=== PATIENT | female | born 1950 | race Caucasian/White ===

== ENCOUNTER 2017-04-16 04:44 | Inpatient (IN) | payer MEDICARE, OTHER ==
[~2017-04-16] VITALS: Ht 157.5 cm; Wt 101.6 kg
[2017-04-16 04:55] LABS: PCO2 Arterial 36.1 mmHg (35-45); PO2 Arterial 57.1 mmHg (80-100); pH Blood Arterial 7.38 (7.35-7.45)
[2017-04-16 05:14] LABS: BASOPHILS ABSOLUTE AUTO 0.04 K/mm3 (0.00-0.23); BASOPHILS PERCENT AUTO 0 % (0-2); EOSINOPHILS PERCENT AUTO 0 % (0-6); Hematocrit 39.4 % (33.0-51.0); Hemoglobin 12.8 g/dL (11.5-16.0); IMMATURE GRAN ABSOLUTE AUTO 0.16 K/mm3 (0.00-0.10); IMMATURE GRAN PERCENT AUTO 1 % (0-1); LYMPHOCYTES ABSOLUTE AUTO 1.26 K/mm3 (0.84-5.20); LYMPHOCYTES PERCENT AUTO 7 % (21-46); MONOCYTES ABSOLUTE AUTO 0.39 K/mm3 (0.16-1.47); MONOCYTES PERCENT AUTO 2 % (4-13); Mean Corpuscular HGB 28.6 pg (26.0-34.0); Mean Corpuscular HGB Conc 32.5 g/dL (31.5-36.5); Mean Corpuscular Volume 88 fL (80-100); Mean Platelet Volume 11.2 fL (9.1-12.4); NEUTROPHILS ABSOLUTE AUTO 15.54 K/mm3 (1.96-9.15); NEUTROPHILS PERCENT AUTO 90 % (41-73); Platelet Count 175 K/mm3 (150-400); RDW Coefficient Variation 14.2 % (11.7-14.2); RDW Standard Deviation 45.7 fL (35.1-46.3); Red Blood Cell Count 4.48 M/mm3 (3.80-5.20); White Blood Cell Count 17.39 K/mm3 (4.00-11.30)
[2017-04-16 05:35] LABS: Calcium, Ionized (POC) 1.12 mmol/L (1.10-1.46); Chloride (POC) 96 mmol/L (98-108); Creatinine (POC) 1.3 mg/dL (0.6-1.0); Glucose (ISTAT POC) 290 mg/dL (70-99); Hemoglobin (POC) 13.3 g/dL (12.0-16.0); Potassium (POC) 3.4 mmol/L (3.5-5.5); Sodium (POC) 133 mmol/L (135-148); Total CO2 (POC) 22 mmol/L (21-32)
[2017-04-16 06:00] LABS: Albumin/Globulin Ratio 0.8 (0.8-1.8); Bilirubin, Total 0.5 mg/dL (0.1-1.0); Bun/Creatinine Ratio 14.3 (12.0-20.0); Calcium, Blood 8.7 mg/dL (8.5-10.1); Creatinine, Blood 1.12 mg/dL (0.40-1.00); Globulin, Blood 3.8 g/dL (2.2-4.0); Potassium, Blood 3.5 mmol/L (3.5-5.5); Total Protein, Blood 6.8 g/dL (6.4-8.2)
[2017-04-16 06:33] LABS: Troponin I 7.35 ng/mL (0.000-0.040)
[2017-04-16 06:48] LABS: International Normalized Ratio 1.11; Prothrombin Time Results 11.6 Sec (9.7-11.5)
[2017-04-16 07:05] LABS: Source, Urine Clean Catch
[2017-04-16 07:10] LABS: Bilirubin, Urine Neg (Neg); Blood, Urine 4+ (Neg); Glucose Qualitative, Urine 2+ (Neg); Ketones, Urine 1+ (Neg); Leukocyte Esterase, Urine 1+ (Neg); Nitrite, Urine Neg (Neg); Protein, Urine 3+ (Neg); Specific Gravity, Urine 1.015 (1.003-1.022); Urobilinogen, Urine NORM (Normal); pH, Urine 6.5 (5.0-8.0)
[2017-04-16 07:20] LABS: Appearance, Urine Hazy (Clear); Color, Urine Yellow (P-Yellow)
[2017-04-16 07:25] LABS: Squamous Epithelial Cells Mod /hpf (Few)
[2017-04-16 07:26] LABS: Influenza A Negative (NEGATIVE); Influenza B Negative (NEGATIVE)
[2017-04-16 07:27] LABS: Bacteria Mod /hpf
[2017-04-16 07:29] LABS: Granular Casts Rare /lpf (0)
[2017-04-16 08:01] LABS: Magnesium, Blood 1.9 mg/dL (1.6-2.4); Phosphorus, Blood 2.8 mg/dL (2.5-4.9)
[2017-04-16] MEDS ORDERED: LEVSOD50 PO (13:21)
[2017-04-16] MEDS ORDERED: METO25ER PO (13:22)
[2017-04-16 15:04] LABS: Troponin I 20.6 ng/mL (0.000-0.040)
[2017-04-16] MEDS ORDERED: ATOR80 PO (15:45)
[2017-04-16] MEDS ORDERED: FURO40 PO (15:45)
[2017-04-16] MEDS ORDERED: ACET325 PO (15:46)
[2017-04-16] MEDS ORDERED: DIPH50 PO (15:47)
[2017-04-16] MEDS ORDERED: Colace100 MG PO (15:48)
[2017-04-16 16:57] LABS: Creatine Kinase MB 21.4 ng/mL (0.0-3.6); Creatine Kinase MB Index 5.2 (0.0-4.0)
[2017-04-16 22:50] LABS: Troponin I 15.2 ng/mL (0.000-0.040)
[2017-04-16 23:09] LABS: Creatine Kinase MB 15.6 ng/mL (0.0-3.6); Creatine Kinase MB Index 3.3 (0.0-4.0)
[2017-04-17 04:22] LABS: BASOPHILS ABSOLUTE AUTO 0.03 K/mm3 (0.00-0.23); BASOPHILS PERCENT AUTO 0 % (0-2); EOSINOPHILS ABSOLUTE AUTO 0.02 K/mm3 (0.00-0.68); EOSINOPHILS PERCENT AUTO 0 % (0-6); Hematocrit 33.3 % (33.0-51.0); Hemoglobin 10.7 g/dL (11.5-16.0); IMMATURE GRAN ABSOLUTE AUTO 0.04 K/mm3 (0.00-0.10); IMMATURE GRAN PERCENT AUTO 0 % (0-1); LYMPHOCYTES PERCENT AUTO 10 % (21-46); MONOCYTES ABSOLUTE AUTO 0.07 K/mm3 (0.16-1.47); MONOCYTES PERCENT AUTO 1 % (4-13); Mean Corpuscular HGB 28.7 pg (26.0-34.0); Mean Corpuscular HGB Conc 32.1 g/dL (31.5-36.5); Mean Corpuscular Volume 89 fL (80-100); Mean Platelet Volume 10.2 fL (9.1-12.4); NEUTROPHILS PERCENT AUTO 88 % (41-73); Platelet Count 99 K/mm3 (150-400); RDW Coefficient Variation 14.4 % (11.7-14.2); RDW Standard Deviation 46.8 fL (35.1-46.3); Red Blood Cell Count 3.73 M/mm3 (3.80-5.20); White Blood Cell Count 8.96 K/mm3 (4.00-11.30)
[2017-04-17 04:44] LABS: Albumin, Blood 2.5 g/dL (3.4-5.0); Albumin/Globulin Ratio 0.8 (0.8-1.8); Alk Phos 102 U/L (50-136); Anion Gap 6 mmol/L (6-16); Bilirubin, Total 0.5 mg/dL (0.1-1.0); Blood Urea Nitrogen 16 mg/dL (8-24); Bun/Creatinine Ratio 17.9 (12.0-20.0); CO2, Blood 25 mmol/L (21-32); Calcium, Blood 7.8 mg/dL (8.5-10.1); Chloride, Blood 109 mmol/L (98-108); Creatinine, Blood 0.89 mg/dL (0.40-1.00); Globulin, Blood 3.1 g/dL (2.2-4.0); Glomerular Filtration Rate >60 (60-); Glucose, Blood 78 mg/dL (70-99); Potassium, Blood 4.5 mmol/L (3.5-5.5); Sodium, Blood 140 mmol/L (136-145); Total Protein, Blood 5.6 g/dL (6.4-8.2)
[2017-04-17 04:53] LABS: Alanine Aminotransfer (ALT/SGP 1208 U/L (12-78); Aspartate Aminotrans (AST/SGOT 1986 U/L (12-37)
[2017-04-18 04:54] LABS: BASOPHILS ABSOLUTE AUTO 0.02 K/mm3 (0.00-0.23); BASOPHILS PERCENT AUTO 0 % (0-2); EOSINOPHILS ABSOLUTE AUTO 0.04 K/mm3 (0.00-0.68); EOSINOPHILS PERCENT AUTO 1 % (0-6); Hemoglobin 10.4 g/dL (11.5-16.0); IMMATURE GRAN ABSOLUTE AUTO 0.03 K/mm3 (0.00-0.10); IMMATURE GRAN PERCENT AUTO 1 % (0-1); LYMPHOCYTES ABSOLUTE AUTO 1.11 K/mm3 (0.84-5.20); LYMPHOCYTES PERCENT AUTO 20 % (21-46); MONOCYTES ABSOLUTE AUTO 0.28 K/mm3 (0.16-1.47); MONOCYTES PERCENT AUTO 5 % (4-13); Mean Corpuscular HGB 29.2 pg (26.0-34.0); Mean Corpuscular HGB Conc 32.5 g/dL (31.5-36.5); Mean Corpuscular Volume 90 fL (80-100); Mean Platelet Volume 10.6 fL (9.1-12.4); NEUTROPHILS ABSOLUTE AUTO 4.01 K/mm3 (1.96-9.15); NEUTROPHILS PERCENT AUTO 73 % (41-73); Platelet Count 93 K/mm3 (150-400); RDW Coefficient Variation 14.5 % (11.7-14.2); RDW Standard Deviation 48.1 fL (35.1-46.3); Red Blood Cell Count 3.56 M/mm3 (3.80-5.20); White Blood Cell Count 5.49 K/mm3 (4.00-11.30)
[2017-04-18 05:11] LABS: Alanine Aminotransfer (ALT/SGP 998 U/L (12-78); Albumin, Blood 2.4 g/dL (3.4-5.0); Albumin/Globulin Ratio 0.8 (0.8-1.8); Alk Phos 92 U/L (50-136); Anion Gap 6 mmol/L (6-16); Aspartate Aminotrans (AST/SGOT 935 U/L (12-37); Bilirubin, Total 0.3 mg/dL (0.1-1.0); Blood Urea Nitrogen 12 mg/dL (8-24); Bun/Creatinine Ratio 15.6 (12.0-20.0); CO2, Blood 26 mmol/L (21-32); Calcium, Blood 7.5 mg/dL (8.5-10.1); Chloride, Blood 106 mmol/L (98-108); Creatinine, Blood 0.77 mg/dL (0.40-1.00); Globulin, Blood 3.1 g/dL (2.2-4.0); Glomerular Filtration Rate >60 (60-); Glucose, Blood 83 mg/dL (70-99); Magnesium, Blood 1.8 mg/dL (1.6-2.4); Phosphorus, Blood 2.2 mg/dL (2.5-4.9); Sodium, Blood 138 mmol/L (136-145); Total Protein, Blood 5.5 g/dL (6.4-8.2)
[2017-04-19 04:47] LABS: BASOPHILS ABSOLUTE AUTO 0.02 K/mm3 (0.00-0.23); BASOPHILS PERCENT AUTO 0 % (0-2); EOSINOPHILS ABSOLUTE AUTO 0.11 K/mm3 (0.00-0.68); EOSINOPHILS PERCENT AUTO 2 % (0-6); Hematocrit 34.6 % (33.0-51.0); Hemoglobin 11.1 g/dL (11.5-16.0); IMMATURE GRAN ABSOLUTE AUTO 0.01 K/mm3 (0.00-0.10); IMMATURE GRAN PERCENT AUTO 0 % (0-1); LYMPHOCYTES PERCENT AUTO 30 % (21-46); MONOCYTES ABSOLUTE AUTO 0.55 K/mm3 (0.16-1.47); MONOCYTES PERCENT AUTO 12 % (4-13); Mean Corpuscular HGB 28.4 pg (26.0-34.0); Mean Corpuscular HGB Conc 32.1 g/dL (31.5-36.5); Mean Corpuscular Volume 89 fL (80-100); Mean Platelet Volume 10.7 fL (9.1-12.4); NEUTROPHILS ABSOLUTE AUTO 2.66 K/mm3 (1.96-9.15); NEUTROPHILS PERCENT AUTO 56 % (41-73); Platelet Count 102 K/mm3 (150-400); RDW Coefficient Variation 14.6 % (11.7-14.2); RDW Standard Deviation 47.5 fL (35.1-46.3); Red Blood Cell Count 3.91 M/mm3 (3.80-5.20); White Blood Cell Count 4.75 K/mm3 (4.00-11.30)
[2017-04-19 05:14] LABS: Alanine Aminotransfer (ALT/SGP 716 U/L (12-78); Albumin, Blood 2.6 g/dL (3.4-5.0); Albumin/Globulin Ratio 0.8 (0.8-1.8); Alk Phos 94 U/L (50-136); Anion Gap 9 mmol/L (6-16); Aspartate Aminotrans (AST/SGOT 400 U/L (12-37); Bilirubin, Total 0.4 mg/dL (0.1-1.0); Blood Urea Nitrogen 8 mg/dL (8-24); CO2, Blood 27 mmol/L (21-32); Chloride, Blood 104 mmol/L (98-108); Creatinine, Blood 0.67 mg/dL (0.40-1.00); Globulin, Blood 3.4 g/dL (2.2-4.0); Glomerular Filtration Rate >60 (60-); Glucose, Blood 94 mg/dL (70-99); Potassium, Blood 3.9 mmol/L (3.5-5.5); Sodium, Blood 140 mmol/L (136-145)
[2017-04-20 05:17] LABS: BASOPHILS ABSOLUTE AUTO 0.02 K/mm3 (0.00-0.23); BASOPHILS PERCENT AUTO 0 % (0-2); EOSINOPHILS PERCENT AUTO 2 % (0-6); Hematocrit 34.1 % (33.0-51.0); IMMATURE GRAN ABSOLUTE AUTO 0.02 K/mm3 (0.00-0.10); IMMATURE GRAN PERCENT AUTO 0 % (0-1); LYMPHOCYTES ABSOLUTE AUTO 1.54 K/mm3 (0.84-5.20); LYMPHOCYTES PERCENT AUTO 27 % (21-46); MONOCYTES PERCENT AUTO 12 % (4-13); Mean Corpuscular HGB 28.3 pg (26.0-34.0); Mean Corpuscular HGB Conc 32.3 g/dL (31.5-36.5); Mean Corpuscular Volume 88 fL (80-100); Mean Platelet Volume 10.7 fL (9.1-12.4); NEUTROPHILS ABSOLUTE AUTO 3.32 K/mm3 (1.96-9.15); NEUTROPHILS PERCENT AUTO 58 % (41-73); Platelet Count 108 K/mm3 (150-400); RDW Coefficient Variation 14.6 % (11.7-14.2); RDW Standard Deviation 46.5 fL (35.1-46.3); Red Blood Cell Count 3.89 M/mm3 (3.80-5.20)
[2017-04-20 05:37] LABS: Anion Gap 7 mmol/L (6-16); Blood Urea Nitrogen 9 mg/dL (8-24); Bun/Creatinine Ratio 14.9 (12.0-20.0); CO2, Blood 28 mmol/L (21-32); Calcium, Blood 8.1 mg/dL (8.5-10.1); Chloride, Blood 103 mmol/L (98-108); Glomerular Filtration Rate >60 (60-); Glucose, Blood 110 mg/dL (70-99); Potassium, Blood 3.4 mmol/L (3.5-5.5); Sodium, Blood 138 mmol/L (136-145)
[2017-04-20] MEDS ORDERED: Ventolin5 MG/1 ML INH (12:42)
[2017-04-20] MEDS ORDERED: ASPI81CH PO (12:43)
[2017-04-20] MEDS ORDERED: GUAI600T33 PO (12:44)
[2017-04-20] MEDS ORDERED: SPIR25 PO (12:44)
[2017-04-20] MEDS ORDERED: LEVO750 PO (12:44)
[2017-04-20] MEDS ORDERED: POTCHL10ER PO (12:45)
== END 2017-04-20 13:13 | disposition home or self-care (01) | DRG 871 ==
LOC: ER 04:44 → ICUW 05:43 → MEDS 05:43 → ICUW 04-17 15:29 → MEDS 04-19 18:30
PROVIDERS: Emergency Medicine; Internal Medicine
PROC: 5A09357 Assistance with Respiratory Ventilation, Less than 24 Consecutive Hours, Continuous Positive Airway Pressure (ICD-10-PCS; principal; 2017-04-16)
PROC: 02HV33Z Insertion of Infusion Device into Superior Vena Cava, Percutaneous Approach (ICD-10-PCS; 2017-04-16)
PROC: B548ZZA Ultrasonography of Superior Vena Cava, Guidance (ICD-10-PCS; 2017-04-16)
DX: A41.9 Sepsis, unspecified organism (principal); R65.21 Severe sepsis with septic shock; J96.01 Acute respiratory failure with hypoxia; I21.4 Non-ST elevation (NSTEMI) myocardial infarction; I50.41 Acute combined systolic (congestive) and diastolic (congestive) heart failure; D69.6 Thrombocytopenia, unspecified; I95.9 Hypotension, unspecified; J18.9 Pneumonia, unspecified organism; J44.0 Chronic obstructive pulmonary disease with (acute) lower respiratory infection; I11.0 Hypertensive heart disease with heart failure; R79.89 Other specified abnormal findings of blood chemistry; I25.10 Atherosclerotic heart disease of native coronary artery without angina pectoris; E78.00 Pure hypercholesterolemia, unspecified; E03.9 Hypothyroidism, unspecified; E78.5 Hyperlipidemia, unspecified; R33.9 Retention of urine, unspecified; E66.9 Obesity, unspecified; Z68.39 Body mass index [BMI] 39.0-39.9, adult; Z95.1 Presence of aortocoronary bypass graft; Z95.2 Presence of prosthetic heart valve; I25.2 Old myocardial infarction; Z95.0 Presence of cardiac pacemaker; Z87.891 Personal history of nicotine dependence; Z88.5 Allergy status to narcotic agent; Z88.8 Allergy status to other drugs, medicaments and biological substances; Z79.82 Long term (current) use of aspirin; Z79.899 Other long term (current) drug therapy
CPT/HCPCS: 36415; 36569; 36600; 51702; 71045; 76705; 80047; 80048; 80053; 81001; 82550; 82553; 82803; 82947; 83605; 83690; 83735; 83880; 84100; 84145; 84484; 85014; 85025; 85610; 87040; 87070; 87086; 87205; 87804; 93005; 93010; 93306; 94640; 94660; 94760; 96365; 96375; 97116; 97161; 99291; 99292; C1751; G8978; G8979; J0696; J1650; J1956; J2405; J2543; J3010; J3480; J7030; J7060

== ENCOUNTER → 2017-07-15 | Outpatient (CLI) | payer MEDICARE, OTHER ==
[~2017-07-15] MED LIST: ACET325 PO; ASPI81CH PO; ATOR80 PO; Colace100 MG PO; DIPH50 PO; FURO40 PO; GUAI600T33 PO; LEVO750 PO; LEVSOD50 PO; METO25ER PO; POTCHL10ER PO; SPIR25 PO; Ventolin5 MG/1 ML INH
== END ==
LOC: LAB SHORT 13:14 → LAB 13:14
DX: B37.0 Candidal stomatitis (principal)
CPT/HCPCS: 87070

== ENCOUNTER → 2021-04-09 | Outpatient (CLI) | payer MEDICARE, OTHER ==
[2021-04-11 11:23] LABS: Stool Occult Bld Immuno 1 Negative (NEGATIVE)
== END | disposition home or self-care (01) ==
LOC: LAB 19:05 → LAB SHORT 19:05
PROVIDERS: Nurse Practitioner Family
DX: Z12.11 Encounter for screening for malignant neoplasm of colon (principal); Z12.12 Encounter for screening for malignant neoplasm of rectum
CPT/HCPCS: G0328

== ENCOUNTER → 2022-01-30 | Outpatient (CLI) | payer MEDICARE, OTHER ==
[2022-01-30 11:06] LABS: Source, Urine Clean Catch
[2022-01-30 12:56] LABS: Appearance, Urine Clear (Clear); Bilirubin, Urine Neg (Neg); Blood, Urine 2+ (Neg); Color, Urine Yellow (P-Yellow); Glucose Qualitative, Urine Neg (Neg); Ketones, Urine Neg (Neg); Leukocyte Esterase, Urine Neg (Neg); Nitrite, Urine Neg (Neg); Protein, Urine Neg (Neg); Specific Gravity, Urine 1.015 (1.003-1.022); Urobilinogen, Urine NORM (Normal); pH, Urine 6.5 (5.0-8.0)
[2022-01-30 13:25] LABS: Bacteria Rare /hpf; Squamous Epithelial Cells Few /hpf (Few)
== END ==
LOC: LAB SHORT 10:47 → LAB 10:47
PROVIDERS: Nurse Practitioner Family
DX: N39.0 Urinary tract infection, site not specified (principal)
CPT/HCPCS: 81001

== ENCOUNTER 2023-03-16 06:13 | Inpatient (IN) | payer MEDICARE, OTHER ==
[~2023-03-16] VITALS: Ht 157.5 cm; Wt 89.6 kg
[2023-03-16 06:47] LABS: BASOPHILS ABSOLUTE AUTO 0.07 K/mm3 (0.00-0.23); BASOPHILS PERCENT AUTO 0 % (0-2); EOSINOPHILS ABSOLUTE AUTO 0.07 K/mm3 (0.00-0.68); EOSINOPHILS PERCENT AUTO 0 % (0-6); Hematocrit 38.6 % (33.0-51.0); Hemoglobin 12.8 g/dL (11.5-16.0); IMMATURE GRAN ABSOLUTE AUTO 0.07 K/mm3 (0.00-0.10); IMMATURE GRAN PERCENT AUTO 0 % (0-1); LYMPHOCYTES ABSOLUTE AUTO 1.36 K/mm3 (0.84-5.20); LYMPHOCYTES PERCENT AUTO 8 % (21-46); MONOCYTES ABSOLUTE AUTO 0.66 K/mm3 (0.16-1.47); MONOCYTES PERCENT AUTO 4 % (4-13); Mean Corpuscular HGB 29.2 pg (26.0-34.0); Mean Corpuscular HGB Conc 33.2 g/dL (31.5-36.5); Mean Corpuscular Volume 88 fL (80-100); Mean Platelet Volume 10.6 fL (9.1-12.4); NEUTROPHILS ABSOLUTE AUTO 14.56 K/mm3 (1.96-9.15); NEUTROPHILS PERCENT AUTO 87 % (41-73); Platelet Count 194 K/mm3 (150-400); RDW Coefficient Variation 13.6 % (11.7-14.2); Red Blood Cell Count 4.38 M/mm3 (3.80-5.20); White Blood Cell Count 16.79 K/mm3 (4.00-11.30)
[2023-03-16 07:03] LABS: Albumin, Blood 3.2 g/dL (3.4-5.0); Albumin/Globulin Ratio 0.9 (0.8-1.8); Bilirubin, Direct 0.3 mg/dL (0.0-0.3); Bilirubin, Indirect 0.7 mg/dL (0.1-0.7); Bun/Creatinine Ratio 20.8 (12.0-20.0); Calcium, Blood 8.7 mg/dL (8.5-10.1); Creatinine, Blood 0.67 mg/dL (0.40-1.00); Globulin, Blood 3.6 g/dL (2.2-4.0); Magnesium, Blood 1.9 mg/dL (1.6-2.4); Potassium, Blood 3.8 mmol/L (3.5-5.5); Total Protein, Blood 6.8 g/dL (6.4-8.2)
[2023-03-16 07:30] LABS: Influenza A, PCR NEGATIVE (NEGATIVE); Influenza B, PCR NEGATIVE (NEGATIVE); Resp Syncytial Virus, PCR NEGATIVE (NEGATIVE); SARS-Cov-2 (COVID-19) PCR, MMC NEGATIVE (NEGATIVE)
[2023-03-16 08:47] LABS: Source, Urine Clean Catch
[2023-03-16 08:53] LABS: Bilirubin, Urine Neg (Neg); Blood, Urine 3+ (Neg); Glucose Qualitative, Urine Neg (Neg); Ketones, Urine 2+ (Neg); Leukocyte Esterase, Urine 3+ (Neg); Nitrite, Urine Neg (Neg); Protein, Urine 2+ (Neg); Urobilinogen, Urine 1+ (Normal); pH, Urine 6.5 (5.0-8.0)
[2023-03-16 09:16] LABS: Appearance, Urine Hazy (Clear); Color, Urine Yellow (P-Yellow)
[2023-03-16 09:17] LABS: Bacteria Few /hpf; Squamous Epithelial Cells Mod /hpf (Few)
[2023-03-16] MEDS ORDERED: ATORVASTATIN CA80 M1 PO (10:55)
[2023-03-16] MEDS ORDERED: FUROSEMIDE40 MG PO (10:56)
[2023-03-16] MEDS ORDERED: Norco 5-325 MG PO (10:57)
[2023-03-16] MEDS ORDERED: SYNTHROID75 MCG PO (10:58)
[2023-03-16] MEDS ORDERED: METO50ER PO (10:59)
[2023-03-16] MEDS ORDERED: ALDACTONE25 MG PO (11:00)
[2023-03-16] MEDS ORDERED: ASPI81CH PO (11:04)
[2023-03-16 12:40] VITALS: BP 111/76
--- NOTE | 2023-03-16 14:30 | NUR ---
pt arrived to 332 via gurney from ed, she is able to stand and tx to bed with sba, a/ox4, pleasant and cooperative with care, follows commands well, denies pain, states she's breathing somewhat better than when she came in, is on an airvo, 40/40, sats 100% lungs are clear but dim t/o, resp even and unlabored at rest, no cough noted, hrr, tele in place running sr to st per monitor, see strip, no edema noted, ppp+2, cap refill <3sec, vs stable, afebrile, iv site is clear and patent, btx4, abd flat soft nontender, voids without diff, skin c/w/d, bev bay, oriented to room layout and call light, call light in reach.
[2023-03-16] MEDS ORDERED: CODACE30 PO (14:41)
[2023-03-16 16:58] VITALS: BP 83/70
[2023-03-16 17:05] VITALS: BP 91/77
--- NOTE | 2023-03-16 18:30 | NUR ---
pt up to bedside cammode with one person assist, is off airvo and on n/c, at 2 liters 02, is doing well, no acute changes this shift. call light in reach.
[2023-03-16 20:41] VITALS: BP 123/80
[2023-03-17 05:24] VITALS: BP 106/80
[2023-03-17 05:44] LABS: BASOPHILS ABSOLUTE AUTO 0.06 K/mm3 (0.00-0.23); BASOPHILS PERCENT AUTO 1 % (0-2); EOSINOPHILS ABSOLUTE AUTO 0.26 K/mm3 (0.00-0.68); EOSINOPHILS PERCENT AUTO 2 % (0-6); Hematocrit 37.5 % (33.0-51.0); Hemoglobin 12.4 g/dL (11.5-16.0); IMMATURE GRAN ABSOLUTE AUTO 0.03 K/mm3 (0.00-0.10); IMMATURE GRAN PERCENT AUTO 0 % (0-1); LYMPHOCYTES ABSOLUTE AUTO 1.77 K/mm3 (0.84-5.20); LYMPHOCYTES PERCENT AUTO 16 % (21-46); MONOCYTES ABSOLUTE AUTO 0.68 K/mm3 (0.16-1.47); MONOCYTES PERCENT AUTO 6 % (4-13); Mean Corpuscular HGB 29.5 pg (26.0-34.0); Mean Corpuscular HGB Conc 33.1 g/dL (31.5-36.5); Mean Corpuscular Volume 89 fL (80-100); Mean Platelet Volume 10.3 fL (9.1-12.4); NEUTROPHILS ABSOLUTE AUTO 8.25 K/mm3 (1.96-9.15); NEUTROPHILS PERCENT AUTO 75 % (41-73); Platelet Count 194 K/mm3 (150-400); RDW Coefficient Variation 13.9 % (11.7-14.2); RDW Standard Deviation 45.4 fL (35.1-46.3); Red Blood Cell Count 4.21 M/mm3 (3.80-5.20); White Blood Cell Count 11.05 K/mm3 (4.00-11.30)
[2023-03-17 06:04] LABS: Bun/Creatinine Ratio 19.9 (12.0-20.0); Calcium, Blood 8.7 mg/dL (8.5-10.1); Creatinine, Blood 0.65 mg/dL (0.40-1.00); Potassium, Blood 3.9 mmol/L (3.5-5.5)
--- NOTE | 2023-03-17 07:46 | NUR ---
SHIFT SUMMARY PT IS A&OX4, FORGETFUL AT TIMES. VSS ON 2L NC. NSR/ST @ 101 PER TELEMETRY. PT DOES HAVE A PACER. C/O NECK PAIN, MANAGED WITH PRN FROM EMAR. PT VERY UNCOMFORTABLE IN BED, SO WENT BACK AND FORTH FROM RECLINER TO BED. ADDED AN EGGCRATE TO MATTRESS, PT STATED IT HELPED. BLE WITH +2 EDEMA. SBA TO BR. VOIDING IN TOILET, NO BM THIS SHIFT. TOLERATING A CARDIAC DIET. BED IN LOWEST POSITION, CALL LIGHT WITHIN REACH. FIRE SAFETY CHECKS COMPLETED
[2023-03-17 08:29] VITALS: BP 106/82
[2023-03-17 15:19] VITALS: BP 86/64
[2023-03-17 18:29] VITALS: BP 107/79
--- NOTE | 2023-03-17 19:24 | NUR ---
SHIFT SUMMARY: NO ACUTE EVENTS. NO EVENTS ON TELEMETRY, SR-ST 85-115 DEPENDING ON ACTIVITY. WEANED OFF OXYGEN, IS 93% ON ROOM AIR. C/O URINARY FREQUENCY AND URGENCY. C/O CHRONIC PAIN IN NECK, DECLINED OFFERED PAIN MEDS. WAS UP IN CHAIR MOST OF THE SHIFT, AMBULATING TO THE BR. BP WAS SOFT THIS AFTERNOON, BUT THIS AUTHOR RE-CHECKED BP WITH WRIST CUFF AND GOT BETTER READING. DENIES CHEST PAIN OR DISCOMFORT, DIZZINESS. IS HOPING TO GO HOME THURSDAY.
[2023-03-17 19:26] VITALS: BP 100/76
[2023-03-18 01:41] VITALS: BP 105/74
--- NOTE | 2023-03-18 05:15 | NUR ---
SHIFT SUMMARY PT IS A&OX4, CONFUSED AT TIMES, MORE SO WHEN SHE WAKES AT NOC. EASILY REDIRECTABLE. VSS ON RA T/O NOC. PER TELEMETRY SHE IS NSR @ 90. C/O SOB AROUND 0500. SHE HAD NO BREATHING TREATMENTS ORDERED. C/O CHRONIC NECK/BACK PAIN, REFUSED ANY MEDICATION. TOLERATING A CARDIAC DIET. VOIDING ADEQUATE AMOUNTS OF LIGHT [place] COLORED URINE. NO BM THIS SHIFT, MIRALAX GIVEN. UP AD BOBBY INDEPENDENTLY IN ROOM/BR. BED IN LOWEST POSITION, CALL LIGHT WITHIN REACH. FIRE SAFETY CHECKS COMPLETED
[2023-03-18 06:00] LABS: BASOPHILS ABSOLUTE AUTO 0.08 K/mm3 (0.00-0.23); BASOPHILS PERCENT AUTO 1 % (0-2); EOSINOPHILS ABSOLUTE AUTO 0.37 K/mm3 (0.00-0.68); EOSINOPHILS PERCENT AUTO 3 % (0-6); Hematocrit 39.4 % (33.0-51.0); Hemoglobin 13.2 g/dL (11.5-16.0); IMMATURE GRAN ABSOLUTE AUTO 0.04 K/mm3 (0.00-0.10); IMMATURE GRAN PERCENT AUTO 0 % (0-1); LYMPHOCYTES ABSOLUTE AUTO 2.36 K/mm3 (0.84-5.20); LYMPHOCYTES PERCENT AUTO 19 % (21-46); MONOCYTES ABSOLUTE AUTO 0.86 K/mm3 (0.16-1.47); MONOCYTES PERCENT AUTO 7 % (4-13); Mean Corpuscular HGB 29.8 pg (26.0-34.0); Mean Corpuscular HGB Conc 33.5 g/dL (31.5-36.5); Mean Corpuscular Volume 89 fL (80-100); Mean Platelet Volume 10.8 fL (9.1-12.4); NEUTROPHILS ABSOLUTE AUTO 8.46 K/mm3 (1.96-9.15); NEUTROPHILS PERCENT AUTO 70 % (41-73); Platelet Count 210 K/mm3 (150-400); RDW Coefficient Variation 13.8 % (11.7-14.2); RDW Standard Deviation 44.7 fL (35.1-46.3); Red Blood Cell Count 4.43 M/mm3 (3.80-5.20); White Blood Cell Count 12.17 K/mm3 (4.00-11.30)
[2023-03-18 07:48] VITALS: BP 84/64
--- NOTE | 2023-03-18 08:00 | NUR ---
SPOKE TO DR GONZALES- PT REQUESTING BREATHING Tx, NONE ORDERED. RECIEVED ORDER FOR BD PROTOCOL. CALLED RT, SHE PLACED ORDER FOR Tx AND WILL COME ADMINISTER. PT BP LOW THIS AM. RECIEVED ORDER TO HOLD THE IV LASIX AND OTHER PO CARDIAC MEDS TODAY.
[2023-03-18 09:11] LABS: Bun/Creatinine Ratio 22.8 (12.0-20.0); Calcium, Blood 8.8 mg/dL (8.5-10.1); Creatinine, Blood 0.7 mg/dL (0.40-1.00); Potassium, Blood 3.9 mmol/L (3.5-5.5)
[2023-03-18] MEDS ORDERED: METO25ER PO (12:18)
[2023-03-18] MEDS ORDERED: SULFAMETHOXAZO1 EAC1 PO (12:21)
[2023-03-18] MEDS ORDERED: ALBU90OI INH (12:36)
[2023-03-18] MEDS ORDERED: IPRAT-ALBUT 0.5-3 ML INH (12:37)
--- NOTE | 2023-03-18 14:28 | NUR ---
DISCHARGE NOTE- PT WAS GIVEN VERBAL AND WRITTEN DISCHAGRE INFORMATION AND ACKNOWLEDGED UNDERSTANDING OF THEM. MEDS WERE FAXED TO [facility] PER THE PT REQUEST. SEVERAL TIMES SHE CONVEYED CONCERN THAT THE MEDICATIONS WOULD COST TOO MUCH FOR HER. SHE REQUESTED MEDS BE SENT TO HER MAIL ORDER PHARMACY, HOWEVER SHE IS AWARE THE ANTIBIOTICS AND BREATHING Tx MEDS MUST BE STARTED IMMEDIATELY. PT IV AND TELE DC'D PRIOR TO DISCHARGE, NO S&S OF DISTRESS. PT ESCORTED OUT VIA WC BY THE QUALITY REVIEW SPECIALIST.
== END 2023-03-18 12:56 | disposition home or self-care (01) | DRG 291 ==
LOC: ER 06:13 → MEDS 06:14
PROVIDERS: Student in an Organized Health Care Education/Training Program; ADMIT Family Medicine
DX: I11.0 Hypertensive heart disease with heart failure (principal); I50.23 Acute on chronic systolic (congestive) heart failure; J96.01 Acute respiratory failure with hypoxia; N39.0 Urinary tract infection, site not specified; J44.9 Chronic obstructive pulmonary disease, unspecified; I25.10 Atherosclerotic heart disease of native coronary artery without angina pectoris; E78.5 Hyperlipidemia, unspecified; E11.65 Type 2 diabetes mellitus with hyperglycemia; G89.29 Other chronic pain; E03.9 Hypothyroidism, unspecified; I25.2 Old myocardial infarction; Z88.8 Allergy status to other drugs, medicaments and biological substances; Z88.5 Allergy status to narcotic agent; Z79.890 Hormone replacement therapy; Z79.82 Long term (current) use of aspirin; Z98.84 Bariatric surgery status; Z87.891 Personal history of nicotine dependence; Z11.52 Encounter for screening for COVID-19; Z95.2 Presence of prosthetic heart valve
CPT/HCPCS: 0241U; 36415; 71045; 80048; 80076; 81001; 83690; 83735; 83880; 84145; 85025; 87086; 93005; 93010; 94640; 94664; 94760; 94762; 96374; 99285-25; A9270; J0696; J1650; J1940; J7050

== ENCOUNTER 2023-03-22 01:13 | Emergency (ER) | payer MEDICARE, OTHER ==
[~2023-03-22] VITALS: Ht 157.5 cm; Wt 88.9 kg
[~2023-03-22 01:13] MED LIST changes: +ALBU90OI INH; +ALDACTONE25 MG PO; +ATORVASTATIN CA80 M1 PO; +CODACE30 PO; +FUROSEMIDE40 MG PO; +IPRAT-ALBUT 0.5-3 ML INH; +METO50ER PO; +Norco 5-325 MG PO; +SULFAMETHOXAZO1 EAC1 PO; +SYNTHROID75 MCG PO
[2023-03-22 01:57] LABS: Albumin, Blood 3.1 g/dL (3.4-5.0); Albumin/Globulin Ratio 0.8 (0.8-1.8); Bilirubin, Total 0.6 mg/dL (0.1-1.0); Bun/Creatinine Ratio 18.1 (12.0-20.0); Calcium, Blood 8.3 mg/dL (8.5-10.1); Creatinine, Blood 0.89 mg/dL (0.40-1.00); Globulin, Blood 3.7 g/dL (2.2-4.0); Potassium, Blood 3.7 mmol/L (3.5-5.5); Total Protein, Blood 6.8 g/dL (6.4-8.2)
[2023-03-22 01:58] LABS: BASOPHILS ABSOLUTE AUTO 0.07 K/mm3 (0.00-0.23); BASOPHILS PERCENT AUTO 0 % (0-2); EOSINOPHILS ABSOLUTE AUTO 0.06 K/mm3 (0.00-0.68); EOSINOPHILS PERCENT AUTO 0 % (0-6); Hematocrit 36.7 % (33.0-51.0); Hemoglobin 12.4 g/dL (11.5-16.0); IMMATURE GRAN ABSOLUTE AUTO 0.18 K/mm3 (0.00-0.10); IMMATURE GRAN PERCENT AUTO 1 % (0-1); LYMPHOCYTES ABSOLUTE AUTO 1.22 K/mm3 (0.84-5.20); LYMPHOCYTES PERCENT AUTO 8 % (21-46); MONOCYTES ABSOLUTE AUTO 0.97 K/mm3 (0.16-1.47); MONOCYTES PERCENT AUTO 6 % (4-13); Mean Corpuscular HGB 29.9 pg (26.0-34.0); Mean Corpuscular HGB Conc 33.8 g/dL (31.5-36.5); Mean Corpuscular Volume 88 fL (80-100); Mean Platelet Volume 10.7 fL (9.1-12.4); NEUTROPHILS ABSOLUTE AUTO 13.85 K/mm3 (1.96-9.15); NEUTROPHILS PERCENT AUTO 85 % (41-73); Platelet Count 231 K/mm3 (150-400); RDW Coefficient Variation 13.7 % (11.7-14.2); RDW Standard Deviation 43.9 fL (35.1-46.3); Red Blood Cell Count 4.15 M/mm3 (3.80-5.20); White Blood Cell Count 16.35 K/mm3 (4.00-11.30)
[2023-03-22 05:41] VITALS: BP 138/63
== END 2023-03-22 07:17 | disposition home or self-care (01) ==
LOC: ER 01:13
PROVIDERS: Student in an Organized Health Care Education/Training Program
DX: I11.0 Hypertensive heart disease with heart failure (principal); I50.9 Heart failure, unspecified; I25.2 Old myocardial infarction; J44.9 Chronic obstructive pulmonary disease, unspecified; E78.5 Hyperlipidemia, unspecified; Z88.8 Allergy status to other drugs, medicaments and biological substances; Z88.1 Allergy status to other antibiotic agents; Z79.890 Hormone replacement therapy; Z79.82 Long term (current) use of aspirin; Z79.899 Other long term (current) drug therapy; Z87.891 Personal history of nicotine dependence
CPT/HCPCS: 71046; 80053; 83880; 84484; 85025; 93005; 93010; 96374; 99285-25; J1940

== ENCOUNTER 2023-07-02 18:24 | Observation (INO) | payer MEDICARE, OTHER ==
[~2023-07-02] VITALS: Ht 157.5 cm; Wt 85.1 kg
[~2023-07-02 18:24] MED LIST changes: +Acetaminophen325 M1 PO; +Amiodarone HCl200 MG PO; +FURO20 PO; +HYDROCODONE-AC1 EA19 PO; +NITR.4SL SL; +POTA10T PO; -POTCHL10ER PO; +Prinivil10 MG PO
[2023-07-02 19:03] LABS: BASOPHILS ABSOLUTE AUTO 0.06 K/mm3 (0.00-0.23); BASOPHILS PERCENT AUTO 1 % (0-2); EOSINOPHILS ABSOLUTE AUTO 0.04 K/mm3 (0.00-0.68); EOSINOPHILS PERCENT AUTO 0 % (0-6); Hematocrit 40.1 % (33.0-51.0); Hemoglobin 13.2 g/dL (11.5-16.0); IMMATURE GRAN ABSOLUTE AUTO 0.06 K/mm3 (0.00-0.10); IMMATURE GRAN PERCENT AUTO 1 % (0-1); LYMPHOCYTES ABSOLUTE AUTO 0.98 K/mm3 (0.84-5.20); LYMPHOCYTES PERCENT AUTO 9 % (21-46); MONOCYTES ABSOLUTE AUTO 0.65 K/mm3 (0.16-1.47); MONOCYTES PERCENT AUTO 6 % (4-13); Mean Corpuscular HGB Conc 32.9 g/dL (31.5-36.5); Mean Corpuscular Volume 88 fL (80-100); Mean Platelet Volume 10.6 fL (9.1-12.4); NEUTROPHILS ABSOLUTE AUTO 9.69 K/mm3 (1.96-9.15); NEUTROPHILS PERCENT AUTO 85 % (41-73); Platelet Count 247 K/mm3 (150-400); RDW Coefficient Variation 15.5 % (11.7-14.2); RDW Standard Deviation 50.4 fL (35.1-46.3); Red Blood Cell Count 4.55 M/mm3 (3.80-5.20); White Blood Cell Count 11.48 K/mm3 (4.00-11.30)
[2023-07-02] MEDS ORDERED: Apixaban 5 MG Tab PO ONE (19:05)
[2023-07-02] MEDS ORDERED: Digoxin 0.25 MG/ML 2ML Amp IV ONE ×2 (19:10→23:30)
[2023-07-02] MEDS ORDERED: NS 1,000 ML IV SCH (19:10)
[2023-07-02 19:24] LABS: Albumin, Blood 3.8 g/dL (3.4-5.0); Albumin/Globulin Ratio 1.1 (0.8-1.8); Bilirubin, Total 1.3 mg/dL (0.1-1.0); Bun/Creatinine Ratio 18.1 (12.0-20.0); Calcium, Blood 9.3 mg/dL (8.5-10.1); Creatinine, Blood 1.16 mg/dL (0.40-1.00); Globulin, Blood 3.4 g/dL (2.2-4.0); Magnesium, Blood 2.2 mg/dL (1.6-2.4); Total Protein, Blood 7.2 g/dL (6.4-8.2)
[2023-07-02] MEDS ORDERED: Ondansetron HCl 2 MG / ML 2ML Vial IV PRN (21:10)
[2023-07-02] MEDS ORDERED: Acetaminophen 325 MG TABLET PO PRN (21:10)
[2023-07-02 21:14] LABS: Influenza A, PCR NEGATIVE (NEGATIVE); Influenza B, PCR NEGATIVE (NEGATIVE); Resp Syncytial Virus, PCR NEGATIVE (NEGATIVE); SARS-Cov-2 (COVID-19) PCR, MMC NEGATIVE (NEGATIVE)
[2023-07-02] MEDS ORDERED: Apixaban 5 MG Tab PO SCH (21:14)
[2023-07-02] MEDS ORDERED: Furosemide 10 MG/ML 4ML Vial IV SCH (22:00)
[2023-07-02 22:45] VITALS: BP 99/85
[2023-07-02] MEDS ORDERED: Metoprolol Tartrate 1 MG/ML 5 ML VIAL IV PRN (22:50)
[2023-07-02 23:00] VITALS: BP 100/88
[2023-07-02] MEDS ORDERED: Metoprolol Tartrate 1 MG/ML 5 ML VIAL IV ONE (23:00)
[2023-07-02] MEDS ORDERED: Digoxin 0.25 MG Tab PO ONE (23:30)
--- NOTE | 2023-07-02 23:45 | NUR ---
ARRIVAL TO ICU PT ARRIVED TO ICU 8 AT 2230 VIA ED BED AND TRANSFERED OVER TO ICU BED VIA SLIDE SHEET. SHE IS BEING ADMITTED FOR TACHYCARDIA WITH RATE 140-150'S; A SECOND DOSE OF DIG AND LASIX GIVEN SHORTLY AFTER ARRIVAL TO ICU; SHE CONVERTED TO A 1ST DEGREE HB WITH FREQUENT PVC'S AROUND 2340; ASYMPTOMATIC WHEN TACHYCARDIC; BP STABLE; NO C/O CHEST PAIN OR PRESSURE. SHE IS A/O X4 BUT EASILY FORGETS AND ASKS THE SAME QUESTIONS; POOR HISTORIAN REGARDING HER OWN HEALTH; SHE DIDN'T RECALL WHY SHE WAS HOSPTIALIZED AT THE BEGINNING OF MAY THIS YEAR. SPO2 >95% ON RA; NO C/O SOB. PUREWICK PLACED AFTER ARRIVAL D/T GIVING LASIX. POWERGLIDE PLACE D/T CHALLENGE FINDING ACCESS. SEE ADMISSION ASSESSMENT FOR FULL ASSESSMENT.
[2023-07-03] VITALS (24 sets, daily range): BP systolic 73–116; BP diastolic 50–70
[2023-07-03 05:35] LABS: Hematocrit 34.8 % (33.0-51.0); Hemoglobin 11.5 g/dL (11.5-16.0); Mean Corpuscular HGB 29.4 pg (26.0-34.0); Mean Corpuscular Volume 89 fL (80-100); Mean Platelet Volume 10.9 fL (9.1-12.4); Platelet Count 209 K/mm3 (150-400); RDW Coefficient Variation 15.4 % (11.7-14.2); RDW Standard Deviation 49.8 fL (35.1-46.3); Red Blood Cell Count 3.91 M/mm3 (3.80-5.20)
[2023-07-03 05:49] LABS: International Normalized Ratio 1.2; Prothrombin Time Results 12.5 Sec (9.7-11.5)
[2023-07-03] MEDS ORDERED: Levothyroxine Sodium 0.075 MG Tab PO SCH (06:00)
[2023-07-03 06:13] LABS: Alanine Aminotransfer (ALT/SGP 753 U/L (12-78); Albumin, Blood 3.2 g/dL (3.4-5.0); Albumin/Globulin Ratio 1.1 (0.8-1.8); Alk Phos 131 U/L (50-136); Anion Gap 8 mmol/L (3-11); Aspartate Aminotrans (AST/SGOT 611 U/L (12-37); Bilirubin, Total 1.1 mg/dL (0.1-1.0); Blood Urea Nitrogen 21 mg/dL (8-24); Bun/Creatinine Ratio 21.3 (12.0-20.0); CO2, Blood 29 mmol/L (21-32); Calcium, Blood 8.7 mg/dL (8.5-10.1); Chloride, Blood 106 mmol/L (98-108); Creatinine, Blood 0.99 mg/dL (0.40-1.00); Digoxin (Lanoxin) 1.65 ug/mL (0.80-2.00); Globulin, Blood 2.8 g/dL (2.2-4.0); Glomerular Filtration Rate 60 (60-); Glucose, Blood 96 mg/dL (70-99); Potassium, Blood 3.8 mmol/L (3.5-5.5); Sodium, Blood 139 mmol/L (136-145)
--- NOTE | 2023-07-03 06:50 | NUR ---
END OF SHIFT SUMMARY NO ACUTE EVENTS SINCE ADMIT. SHE WAS ABLE TO SLEEP FOR A FEW HOURS. SHE IS A/O X3-4, CAN BE CONFUSED WHEN SHE FIRST WAKES UP BUT IS EASILY REORIENTED; CAN BE REPETITIVE ASKING QUESTIONS. PLACED ON 2L NC TO KEEP SPO2 >90% WHILE SLEEPING. AFEBRILE. SINCE CONVERTING AT 2340 SHE CONT TO BE IN A SINUS ARRHYTHMIA WITH FIRST DEGREE HB, SEVERAL PVC'S AND PACER SPIKES NOTED; HR 60-70'S; EKG COMPLETED AFTER CONVERTING. SBP 80-90'S WITH MAP 65-70. ONE EPISODE OF NAUSEA NOTED, ZOFRAN GIVEN AND HELPFUL. PUREWICK IN PLACE AND WITH 800ML OUTPUT. WILL REPORT TO AM RN WHEN AVAILABLE.
--- NOTE | 2023-07-03 08:49 | NUR ---
CARE ASSUMPTION DURING BEDSIDE SHIFT REPORT W GIL Lacy RN THE PT IS SLEEPING COMFORTABLY IN BED ON 2L NC. PT'S MONITOR SHOWING SR 60'S W PAC'S AND OCCASIONAL PACEMAKER SPIKES. BP SOFT BUT STABLE W MAP >65. PT APPEARS COMFORTABLE AT THIS TIME. DURING ASSESSMENT THE PT IS AXO X4 AND COMMUNICATING APPROPRIATELY W STAFF. PT MOVING ALL 4 EXTREMITIES AND SHOWS NO PHYSICAL DEFICITS. PT PLACED ON RM AIR AND MAINTAINS SPO2 >90%. PT HAS PUREWICK IN PLACE DRAINING CLEAR YELLOW URINE. PT REPORTS FEELING MUCH BETTER THEN SHE DID ON ADMISSION. PT ASSISTED W REPOSITIONING AND GIVEN PO MEDS W/O DIFFICULTY. PT CURRENTLY EATING BREAKFAST W HER AND SON AT BEDSIDE.
[2023-07-03] MEDS ORDERED: Atorvastatin 40 MG Tab PO SCH (09:00)
[2023-07-03] MEDS ORDERED: Amiodarone HCl 200 MG Tab PO SCH (09:00)
[2023-07-03] MEDS ORDERED: Metoprolol Succinate 50 MG TABCR PO SCH (09:00)
[2023-07-03] MEDS ORDERED: Apixaban 5 MG Tab PO SCH (09:00)
[2023-07-03] MEDS ORDERED: Digoxin 0.125 MG Tab PO SCH (10:00)
[2023-07-03 13:05] LABS: Source, Urine Clean Catch
[2023-07-03 13:16] LABS: Appearance, Urine Clear (Clear); Bilirubin, Urine Neg (Neg); Blood, Urine 2+ (Neg); Color, Urine Yellow (P-Yellow); Glucose Qualitative, Urine Neg (Neg); Ketones, Urine Neg (Neg); Leukocyte Esterase, Urine Neg (Neg); Nitrite, Urine Neg (Neg); Protein, Urine Neg (Neg); Urobilinogen, Urine 1+ (Normal)
--- NOTE | 2023-07-03 13:23 | NUR ---
Pt. is awake in bed and welcomes my visit. Pt. is pleasant, and spouse is at bedside. Pt. verbalizes an expectation that she will be discharged today. Facilitate a life review and establish some measure of rapport. Prayed for Pt. Pt. verbalized gratitude for the spiritual care visit.
[2023-07-03 13:24] LABS: Bacteria Few /hpf; Squamous Epithelial Cells Few /hpf (Few); White Blood Cells, Urine 0-2 /hpf (0-5)
[2023-07-03] MEDS ORDERED: ELIQUIS5 M2 PO (13:40)
[2023-07-03] MEDS ORDERED: DIGOX125 MC1 PO (13:40)
--- NOTE | 2023-07-03 14:18 | NUR ---
DISCHARGE PT GIVEN OK TO DISCHARGE PER DR. JAVIER AND DR. MALLORY. PT'S VSS STABLE AT DC. PT DENYING ANY PAIN OR NAUSEA THIS SHIFT. PT WAS GIVEN DISCHARGE INSTRUCTIONS W AT BEDSIDE. PT INSTRUCTED TO CONTINUE ALL HOME MEDICATIONS EXCEPT FOR HER ASPIRIN PER DR. MALLORY SINCE SHE WILL BE ON ELIQUIS. PT EDUCATED ON ELIQUIS AND ASSOCIATED RISKS OF BLEEDING. PT EDUCATED ON NEW DIGOXIN RX AND IMPROTANCE OF NOT MISSING DOSES AND NOT TAKING MORE THEN THE PRESCRIBED AMOUNT. PT SENT HOME W FOLLOW UP CARDIOLOGY APPT. PT'S MONITOR SHOWING SR 60'S AT TIME OF DC. PT AND DENYING ANY FURTHER QUESTIONS AT TIME OF DC. PT ASSISTED IN GETTING DRESSED AND TAKEN OUT IN W/C.
== END 2023-07-03 14:19 | disposition home or self-care (01) ==
LOC: ER 18:24 → ICUE 18:25
PROVIDERS: Emergency Medicine; Nurse Practitioner Acute Care; ADMIT Student in an Organized Health Care Education/Training Program
DX: I48.92 Unspecified atrial flutter (principal); I21.A1 Myocardial infarction type 2; I25.10 Atherosclerotic heart disease of native coronary artery without angina pectoris; I11.0 Hypertensive heart disease with heart failure; I50.20 Unspecified systolic (congestive) heart failure; E78.5 Hyperlipidemia, unspecified; J44.9 Chronic obstructive pulmonary disease, unspecified; R79.89 Other specified abnormal findings of blood chemistry; R74.01 Elevation of levels of liver transaminase levels; N17.9 Acute kidney failure, unspecified; E03.9 Hypothyroidism, unspecified; Z79.82 Long term (current) use of aspirin; Z79.890 Hormone replacement therapy; Z79.899 Other long term (current) drug therapy; Z88.8 Allergy status to other drugs, medicaments and biological substances; Z95.1 Presence of aortocoronary bypass graft; Z95.810 Presence of automatic (implantable) cardiac defibrillator
CPT/HCPCS: 0241U; 36415; 71045; 76705; 80053; 80162; 81001; 83690; 83735; 83880; 84484; 85025; 85027; 85610; 93005; 93010; 96374; 96375; 96376; 99285-25; A9270; C1751; G0378; J1160; J1940; J2405; J7030

== ENCOUNTER 2023-07-13 11:26 | Observation (INO) | payer MEDICARE, OTHER ==
[~2023-07-13] VITALS: Ht 157.5 cm; Wt 86.2 kg
[~2023-07-13 11:26] MED LIST changes: +DIGOX125 MC1 PO; +ELIQUIS5 M2 PO
[2023-07-13] MEDS ORDERED: Ondansetron HCl 2 MG / ML 2ML Vial ONE (12:04)
[2023-07-13] MEDS ORDERED: Lactated Ringer's 1,000 ML IV ONE (12:05)
[2023-07-13] MEDS ORDERED: Ondansetron HCl 2 MG / ML 2ML Vial IV ONE (12:05)
[2023-07-13 12:26] LABS: BASOPHILS ABSOLUTE AUTO 0.08 K/mm3 (0.00-0.23); BASOPHILS PERCENT AUTO 1 % (0-2); EOSINOPHILS ABSOLUTE AUTO 0.13 K/mm3 (0.00-0.68); EOSINOPHILS PERCENT AUTO 1 % (0-6); Hematocrit 37.7 % (33.0-51.0); Hemoglobin 11.9 g/dL (11.5-16.0); IMMATURE GRAN ABSOLUTE AUTO 0.05 K/mm3 (0.00-0.10); IMMATURE GRAN PERCENT AUTO 1 % (0-1); LYMPHOCYTES ABSOLUTE AUTO 1.12 K/mm3 (0.84-5.20); LYMPHOCYTES PERCENT AUTO 11 % (21-46); MONOCYTES ABSOLUTE AUTO 0.72 K/mm3 (0.16-1.47); MONOCYTES PERCENT AUTO 7 % (4-13); Mean Corpuscular HGB 29.5 pg (26.0-34.0); Mean Corpuscular HGB Conc 31.6 g/dL (31.5-36.5); Mean Corpuscular Volume 94 fL (80-100); Mean Platelet Volume 10.4 fL (9.1-12.4); NEUTROPHILS ABSOLUTE AUTO 8.26 K/mm3 (1.96-9.15); NEUTROPHILS PERCENT AUTO 80 % (41-73); Platelet Count 155 K/mm3 (150-400); RDW Coefficient Variation 15.2 % (11.7-14.2); RDW Standard Deviation 52.9 fL (35.1-46.3); Red Blood Cell Count 4.03 M/mm3 (3.80-5.20); White Blood Cell Count 10.36 K/mm3 (4.00-11.30)
[2023-07-13 12:43] LABS: Albumin, Blood 2.7 g/dL (3.4-5.0); Bilirubin, Total 0.6 mg/dL (0.1-1.0); Bun/Creatinine Ratio 16.7 (12.0-20.0); Calcium, Blood 7.1 mg/dL (8.5-10.1); Creatinine, Blood 0.72 mg/dL (0.40-1.00); Globulin, Blood 2.6 g/dL (2.2-4.0); Magnesium, Blood 1.6 mg/dL (1.6-2.4); Potassium, Blood 3.1 mmol/L (3.5-5.5); Total Protein, Blood 5.3 g/dL (6.4-8.2)
[2023-07-13] MEDS ORDERED: Potassium Chloride 20 MEQ TabCR PO ONE (13:15)
[2023-07-13] MEDS ORDERED: Calcium Gluconate 10% 1,000 MG in NS 50 ML IV ONE (13:15)
[2023-07-13] MEDS ORDERED: Magnesium Oxide 400 MG Tab PO ONE (13:15)
[2023-07-13 13:55] LABS: Calcium, Ionized (POC) 1.08 mmol/L (1.10-1.46); Chloride (POC) 98 mmol/L (98-108); Creatinine (POC) 0.9 mg/dL (0.6-1.0); Glucose (ISTAT POC) 119 mg/dL (70-99); Hemoglobin (POC) 13.9 g/dL (12.0-16.0); Potassium (POC) 4.4 mmol/L (3.5-5.5); Sodium (POC) 136 mmol/L (135-148); Total CO2 (POC) 31 mmol/L (21-32)
[2023-07-13 14:52] LABS: Albumin, Blood 3.2 g/dL (3.4-5.0); Bilirubin, Total 0.8 mg/dL (0.1-1.0); Calcium, Blood 8.7 mg/dL (8.5-10.1); Creatinine, Blood 0.77 mg/dL (0.40-1.00); Globulin, Blood 3.2 g/dL (2.2-4.0); Potassium, Blood 4.2 mmol/L (3.5-5.5); Total Protein, Blood 6.4 g/dL (6.4-8.2)
[2023-07-13 17:14] LABS: Source, Urine Clean Catch
[2023-07-13 17:20] LABS: Appearance, Urine Clear (Clear); Bilirubin, Urine Neg (Neg); Blood, Urine 2+ (Neg); Color, Urine Yellow (P-Yellow); Glucose Qualitative, Urine Neg (Neg); Ketones, Urine Neg (Neg); Leukocyte Esterase, Urine 1+ (Neg); Nitrite, Urine Neg (Neg); Protein, Urine 1+ (Neg); Specific Gravity, Urine 1.015 (1.003-1.022); Urobilinogen, Urine 1+ (Normal)
[2023-07-13 17:36] LABS: Bacteria Few /hpf; Red Blood Cells, Urine 0-2 /hpf (0-2); Squamous Epithelial Cells Few /hpf (Few)
[2023-07-13 18:32] VITALS: BP 118/54
[2023-07-13] MEDS ORDERED: HYDROcodone 5-APAP 325 TAB PO PRN (19:15)
[2023-07-13] MEDS ORDERED: Albuterol HFA200 ACT/6.7 GM INH INH PRN (19:20)
[2023-07-13 19:50] VITALS: BP 104/53
[2023-07-13] MEDS ORDERED: CefTRIAXone Sodium 1,000 MG in NS 100 ML IV SCH (20:00)
[2023-07-13] MEDS ORDERED: Apixaban 5 MG Tab PO SCH (21:00)
[2023-07-13] MEDS ORDERED: NS 250 ML IV PRN (21:00)
[2023-07-14 04:56] LABS: BASOPHILS ABSOLUTE AUTO 0.08 K/mm3 (0.00-0.23); BASOPHILS PERCENT AUTO 1 % (0-2); EOSINOPHILS PERCENT AUTO 2 % (0-6); Hematocrit 35.6 % (33.0-51.0); Hemoglobin 11.2 g/dL (11.5-16.0); IMMATURE GRAN ABSOLUTE AUTO 0.03 K/mm3 (0.00-0.10); IMMATURE GRAN PERCENT AUTO 0 % (0-1); LYMPHOCYTES ABSOLUTE AUTO 1.85 K/mm3 (0.84-5.20); LYMPHOCYTES PERCENT AUTO 17 % (21-46); MONOCYTES ABSOLUTE AUTO 0.82 K/mm3 (0.16-1.47); MONOCYTES PERCENT AUTO 8 % (4-13); Mean Corpuscular HGB 29.1 pg (26.0-34.0); Mean Corpuscular HGB Conc 31.5 g/dL (31.5-36.5); Mean Corpuscular Volume 93 fL (80-100); Mean Platelet Volume 10.6 fL (9.1-12.4); NEUTROPHILS PERCENT AUTO 72 % (41-73); Platelet Count 171 K/mm3 (150-400); RDW Coefficient Variation 15.2 % (11.7-14.2); RDW Standard Deviation 51.6 fL (35.1-46.3); Red Blood Cell Count 3.85 M/mm3 (3.80-5.20); White Blood Cell Count 10.78 K/mm3 (4.00-11.30)
[2023-07-14 05:12] LABS: International Normalized Ratio 1.09; Prothrombin Time Results 11.6 Sec (9.7-11.5)
[2023-07-14 05:35] VITALS: BP 102/53
[2023-07-14 05:55] LABS: Albumin/Globulin Ratio 1.1 (0.8-1.8); Bilirubin, Total 0.7 mg/dL (0.1-1.0); Bun/Creatinine Ratio 14.4 (12.0-20.0); Calcium, Blood 8.7 mg/dL (8.5-10.1); Creatinine, Blood 0.83 mg/dL (0.40-1.00); Globulin, Blood 2.8 g/dL (2.2-4.0); Magnesium, Blood 1.8 mg/dL (1.6-2.4); Phosphorus, Blood 3.2 mg/dL (2.5-4.9); Potassium, Blood 3.8 mmol/L (3.5-5.5); Total Protein, Blood 5.8 g/dL (6.4-8.2)
[2023-07-14] MEDS ORDERED: Levothyroxine Sodium 0.075 MG Tab PO SCH (06:00)
[2023-07-14 07:19] VITALS: BP 114/53
[2023-07-14] MEDS ORDERED: Potassium Chloride 10 Meq Tablet SA PO SCH (08:00)
[2023-07-14] MEDS ORDERED: Metoprolol Succinate 50 MG TABCR PO SCH (09:00)
[2023-07-14] MEDS ORDERED: Digoxin 0.125 MG Tab PO SCH (09:00)
[2023-07-14] MEDS ORDERED: Amiodarone HCl 200 MG Tab PO SCH (09:00)
[2023-07-14] MEDS ORDERED: Furosemide 40 MG Tab PO SCH (09:00)
[2023-07-14] MEDS ORDERED: Atorvastatin 40 MG Tab PO SCH (09:00)
[2023-07-14] MEDS ORDERED: NITR100CA PO (13:42)
[2023-07-14] MEDS ORDERED: METO50ER PO (13:42)
== END 2023-07-14 14:19 | disposition home or self-care (01) ==
LOC: ER 11:26 → MEDS 11:27
PROVIDERS: Physician Assistant; ADMIT Family Medicine
DX: R55 Syncope and collapse (principal); I48.91 Unspecified atrial fibrillation; I25.10 Atherosclerotic heart disease of native coronary artery without angina pectoris; I11.0 Hypertensive heart disease with heart failure; I50.20 Unspecified systolic (congestive) heart failure; E03.9 Hypothyroidism, unspecified; E78.5 Hyperlipidemia, unspecified; E11.9 Type 2 diabetes mellitus without complications; R79.89 Other specified abnormal findings of blood chemistry; I95.9 Hypotension, unspecified; I25.2 Old myocardial infarction; Z79.899 Other long term (current) drug therapy; Z95.1 Presence of aortocoronary bypass graft; Z95.0 Presence of cardiac pacemaker
CPT/HCPCS: 36415; 70450; 80047; 80053; 81001; 83036; 83735; 83880; 84100; 84484; 85014; 85025; 85610; 87086; 87147; 93005; 93010; 96361; 96365; 96374; 96375; 97110; 97116; 97161; 99285-25; A9270; G0378; J0696; J2405; J7050; J7120